=== PATIENT | female | born 2000 | race Caucasian/White ===

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

== ENCOUNTER → 2023-05-16 | Outpatient (CLI) | payer BC ==
--- NOTE | 2023-05-17 08:14 | XR ---
EXAMINATION TYPE: XR chest 2V DATE OF EXAM: 05/16/2023 COMPARISON: NONE TECHNIQUE: PA and lateral views submitted. HISTORY: Cough and congestion FINDINGS: The lungs are clear and there is no pneumothorax, pleural effusion, or focal pneumonia. Heart size normal and no overt failure. Osseous structures intact. Coarsened interstitial markings. IMPRESSION: 1. No consolidative pneumonia. Coarsened interstitial markings may reflect reduced inspiration rather than interstitial pneumonitis or bronchitis. Correlate clinically..
== END | disposition home or self-care (01) ==
LOC: RADXRMAIN 16:49
PROVIDERS: ATTEND Family Medicine
DX: R05.9 Cough, unspecified (principal)
CPT/HCPCS: 71046